=== PATIENT | female | born 1965 | race Caucasian/White ===

== ENCOUNTER 2021-08-02 06:57 | Inpatient (IN) ==
[2021-08-02] MEDS ORDERED: CeFAZolin Syr 2,000MG/20 ML 2,000 MG/20 ML SYRINGE IVPB ONE (07:24)
[2021-08-02] MEDS ORDERED: Ringers Solution, Lactated 1,000 ML IVC SCH (07:30)
[2021-08-02] MEDS ORDERED: Lidocaine -MPF 2% 5 ML VIAL ONE (07:31)
[2021-08-02] MEDS ORDERED: Ondansetron 4 MG/2 ML VIAL ONE (07:31)
[2021-08-02] MEDS ORDERED: *HR* Propofol 200 MG/20 ML VIAL IVP ONE (07:34)
[2021-08-02] MEDS ORDERED: *HR* Rocuronium Bromide 50 MG/5 ML VIAL ONE (07:34)
[2021-08-02] MEDS ORDERED: *HR* HYDROmorphone PF 0.5 MG/0.5 ML SYRINGE IVP PRN (07:34)
[2021-08-02] MEDS ORDERED: *HR* Phenylephrine 10 MG/ML VIAL ONE (07:35)
[2021-08-02] MEDS ORDERED: *HR* Midazolam HCl 2 MG/2 ML VIAL ONE (07:36)
[2021-08-02] MEDS ORDERED: *HR* FentaNYL (PF) 100 MCG/2 ML VIAL ONE (07:36)
[2021-08-02] MEDS ORDERED: *HR* Remifentanil 1 MG VIAL IVP ONE (07:38)
[2021-08-02] MEDS ORDERED: Lidocaine HCL 4 ML Topical Solution (Laryng-O-Jet Kit Sterile Pak) TP ONE (10:26)
[2021-08-02] MEDS ORDERED: EPHEDrine 50 MG/ML VIAL ONE (11:10)
[2021-08-02] MEDS ORDERED: Sugammadex Sodium 200 MG/2 ML VIAL IV ONE (11:42)
[2021-08-02] MEDS ORDERED: Ketorolac 30 MG/ML VIAL ONE (12:07)
[2021-08-02] MEDS ORDERED: *HR* HYDROMORPHONE 2 MG/ML VIAL ONE (12:19)
[2021-08-02] MEDS ORDERED: Acetaminophen IV 1,000 MG/100 ML BAG IVPB ONE (12:22)
[2021-08-02] MEDS ORDERED: *HR* HYDROcodone/Acet 5/325 mg TABLET PO PRN (13:22)
[2021-08-02] MEDS ORDERED: Naloxone 0.4 MG/ML INJ IVP PRN (13:22)
[2021-08-02] MEDS ORDERED: Ondansetron 4 MG/2 ML VIAL IVP PRN (13:22)
[2021-08-02] MEDS: 0.9 % Sodium Chloride 1,000 ML IVC SCH ×2 (13:53→23:47)
[2021-08-02] MEDS: *HR* Heparin 5,000 UNIT/ML VIAL SQ SCH ×2 (13:54→21:23)
[2021-08-02] MEDS: Ipratropium/Albuterol Neb 3 ML IH SCH ×3 (16:06→23:58)
[2021-08-02] MEDS: Gabapentin 300 MG CAPSULE PO SCH ×2 (16:41→21:23)
[2021-08-02] MEDS: Famotidine 20 MG TABLET PO SCH (21:22)
[2021-08-02] MEDS: Sennosides/Docusate Sodium TABLET PO SCH (21:23)
[2021-08-03 02:48] LABS: Hematocrit 37.5 % (35.3-44.9); Hemoglobin 11.8 g/dL (11.5-15.4); Mean Corpuscular HGB Conc 31.5 g/dL (31.6-35.5); Mean Corpuscular Hemoglobin 29.7 pg (28.0-33.3); Mean Corpuscular Volume 94.5 fL (83.0-100.0); Mean Platelet Volume 9.3 fL (9.4-12.4); Platelet Count 224 K/mcL (140-400); Red Blood Count 3.97 M/mcL (3.82-4.97); Red Cell Distribution Width 12.9 % (11.5-14.5); White Blood Count 7.8 K/mcL (4.3-11.1)
[2021-08-03 03:05] LABS: BUN/Creatinine Ratio 19 (6-26); Blood Urea Nitrogen 12 mg/dL (6-20); Calcium 8.8 mg/dL (8.6-10.3); Carbon Dioxide 25 mEq/L (23-29); Chloride 107 mEq/L (98-107); Glucose 138 mg/dL (70-105); Osmolality,Calculated 284 (280-300); Potassium 3.9 mEq/L (3.5-5.1); Sodium 136 mEq/L (136-145); eGFR For African Americans > 60 (> 60); eGFR For Non-African Americans > 60 (> 60)
[2021-08-03] MEDS: Ipratropium/Albuterol Neb 3 ML IH SCH ×3 (04:13→11:25)
[2021-08-03] MEDS: *HR* Heparin 5,000 UNIT/ML VIAL SQ SCH (05:38)
[2021-08-03 08:03] VITALS: TEMP 98.5
[2021-08-03] MEDS: Sennosides/Docusate Sodium TABLET PO SCH (10:10)
[2021-08-03] MEDS: Famotidine 20 MG TABLET PO SCH (10:10)
[2021-08-03] MEDS: Gabapentin 300 MG CAPSULE PO SCH (10:10)
[2021-08-03 10:58] VITALS: BP 104/57; PULSE 81; O2SAT 96
== END 2021-08-03 12:05 | disposition home or self-care (01) | DRG 167 ==
LOC: SAMDAY 06:57 → 2NNU 13:21
PROVIDERS: ADMIT Thoracic Surgery (Cardiothoracic Vascular Surgery); ATTEND Thoracic Surgery (Cardiothoracic Vascular Surgery)

== ENCOUNTER 2021-09-20 08:49 | Inpatient (IN) ==
[2021-09-20] MEDS ORDERED: CeFAZolin Syr 2,000MG/20 ML 2,000 MG/20 ML SYRINGE IVPB ONE (09:32)
[2021-09-20] MEDS ORDERED: Ondansetron 4 MG/2 ML VIAL IVP ONE (09:34)
[2021-09-20] MEDS ORDERED: Acetaminophen IV 1,000 MG/100 ML BAG IVPB ONE (09:37)
[2021-09-20] MEDS ORDERED: Ringers Solution, Lactated 1,000 ML IVC SCH (09:45)
[2021-09-20] MEDS ORDERED: Famotidine 20 MG TABLET PO SCH (09:45)
[2021-09-20] MEDS ORDERED: Famotidine 20 MG/2 ML VIAL IVP ONE (09:47)
[2021-09-20] MEDS ORDERED: *HR* FentaNYL (PF) 100 MCG/2 ML VIAL IVP PRN (10:10)
[2021-09-20] MEDS ORDERED: *HR* HYDROmorphone (PF) 1 MG/ML SYRINGE IVP PRN (10:10)
[2021-09-20] MEDS ORDERED: Albuterol 2.5 MG/3 ML NEBULIZER IH PRN (10:10)
[2021-09-20] MEDS ORDERED: Nitroglycerin 0.4 MG TAB.SUBL SL PRN (10:10)
[2021-09-20] MEDS ORDERED: Ondansetron 4 MG/2 ML VIAL IVP PRN ×2 (10:10→15:55)
[2021-09-20] MEDS ORDERED: Naloxone 0.4 MG/ML INJ IVP PRN ×2 (10:10→15:55)
[2021-09-20] MEDS ORDERED: Ketorolac 30 MG/ML VIAL ONE (11:37)
[2021-09-20] MEDS ORDERED: Sugammadex Sodium 200 MG/2 ML VIAL IV ONE (11:53)
[2021-09-20] MEDS ORDERED: Gabapentin 300 MG CAPSULE PO ONE (13:00)
[2021-09-20] MEDS ORDERED: Gabapentin 300 MG CAPSULE PO SCH (15:00)
[2021-09-20] MEDS ORDERED: *HR* HYDROcodone/Acet 5/325 mg TABLET PO PRN (15:55)
[2021-09-20] MEDS: *HR* Heparin 5,000 UNIT/ML VIAL SQ SCH ×2 (16:58→20:58)
[2021-09-20] MEDS: Gabapentin 300 MG CAPSULE PO SCH ×2 (16:58→20:58)
[2021-09-20] MEDS: 0.9 % Sodium Chloride 1,000 ML IVC SCH (17:04)
[2021-09-20] MEDS: Sennosides/Docusate Sodium TABLET PO SCH (20:58)
[2021-09-20] MEDS: Famotidine 20 MG TABLET PO SCH (20:58)
[2021-09-20] MEDS: Ipratropium/Albuterol Neb 3 ML IH SCH ×3 (20:59→23:48)
[2021-09-21 02:42] LABS: Hematocrit 35.7 % (35.3-44.9); Hemoglobin 11.6 g/dL (11.5-15.4); Mean Corpuscular HGB Conc 32.5 g/dL (31.6-35.5); Mean Corpuscular Hemoglobin 30.1 pg (28.0-33.3); Mean Corpuscular Volume 92.7 fL (83.0-100.0); Mean Platelet Volume 10.4 fL (9.4-12.4); Platelet Count 164 K/mcL (140-400); Red Blood Count 3.85 M/mcL (3.82-4.97); Red Cell Distribution Width 13.2 % (11.5-14.5); White Blood Count 7.3 K/mcL (4.3-11.1)
[2021-09-21 02:59] LABS: BUN/Creatinine Ratio 19 (6-26); Blood Urea Nitrogen 11 mg/dL (6-20); Calcium 8.6 mg/dL (8.6-10.3); Carbon Dioxide 24 mEq/L (23-29); Chloride 106 mEq/L (98-107); Glucose 142 mg/dL (70-105); Magnesium 1.7 mg/dL (1.6-2.6); Osmolality,Calculated 286 (280-300); Potassium 3.9 mEq/L (3.5-5.1); Sodium 137 mEq/L (136-145); eGFR For African Americans > 60 (> 60); eGFR For Non-African Americans > 60 (> 60)
[2021-09-21] MEDS: Ipratropium/Albuterol Neb 3 ML IH SCH ×2 (04:33→07:18)
[2021-09-21] MEDS: *HR* Heparin 5,000 UNIT/ML VIAL SQ SCH (05:05)
[2021-09-21] MEDS: 0.9 % Sodium Chloride 1,000 ML IVC SCH (05:40)
[2021-09-21 07:27] VITALS: BP 102/58; O2SAT 96
[2021-09-21 07:55] VITALS: PULSE 92; TEMP 96.9
[2021-09-21] MEDS: Sennosides/Docusate Sodium TABLET PO SCH (09:27)
[2021-09-21] MEDS: Famotidine 20 MG TABLET PO SCH (09:27)
[2021-09-21] MEDS: Gabapentin 300 MG CAPSULE PO SCH (09:27)
== END 2021-09-21 10:38 | disposition home or self-care (01) | DRG 164 ==
LOC: SAMDAY 08:49 → 2NNU 15:41
PROVIDERS: ADMIT Thoracic Surgery (Cardiothoracic Vascular Surgery); ATTEND Thoracic Surgery (Cardiothoracic Vascular Surgery)